=== PATIENT | male | born 1935 | race Caucasian/White ===

== ENCOUNTER 2021-11-11 09:05 | Emergency (ER) | payer OTHER ==
--- OUTSIDE RECORDS SUMMARY | 2021-11-11 09:09 | XMS REPORT | Continuity of Care Document ---
:1935 Author Organization [facility] t Address [address] [place] [address] Care Team Providers Name Role Phone MEGHANN PATE Primary Care Physician Unavailable RICHARD Attending Clinician Unavailable Harrison MCMAHON, Juan Johnson Attending Clinician Unavailable YANE CARBONE Attending Clinician Unavailable Yane Carbone MD Attending Clinician KVxavier Attending Clinician Unavailable MEGHANN PATE Attending Clinician Unavailable RICHARD Admitting Clinician Unavailable YANE CARBONE Admitting Clinician Unavailable Yane Carbone MD Admitting Clinician KVxavier Admitting Clinician Unavailable MEGHANN PATE Admitting Clinician Unavailable Payers Payer Name Policy Type Policy Number Effective Date Expiration Date S kalpesh [place]: [id number] 2004 [place] 00:00:00 [place] [id number] 2007 [place] (MEDICARE 00:00:00 SUPPLEMENT) [place]: [id number] 2004 [place] 00:00:00 - RHC - FQHC Problems Condition Condition Condition Status Onset Resolution Last Treating Co mments Source Name Details Category Date Date Treatment Clinician Date Trauma Trauma Disease Active Univers 6-17 ity of 00:00: [place] 00 Medical Branch 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 8-20 [place] of hyperplasi [place] Essential Essential Disease Active Uni vers hypertensi hypertensi 8-20 it y of on on 00:00: [place] [facility] 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 00:00: [place] disease disease 00 Medical Branch 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 00:00: [place] [facility] Onychomyco Onychomyco Problem Active M [place] sis of sis of 9-30 da toenails Toenails 00:00: Medica l 00 Group 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 00:00: Medical 00 Group Mouth Mouth Problem Active [place] breathing Breathing 9-30 da with nasal with Nasal 00:00: Me dical obstructio Obstructio 00 Gr oup n n Adult Adult Problem Active [facility] 9-[facility] da examinatio Examinatio 00:00: Me dical n n 00 Group Mass of Mass of Problem Active [place] subcutaneo Subcutaneo 9-30 da us tissue us Tissue 00:00: Medi narinder of back of Back 00 Group Microscopi Microscopi Problem Active M [place] c c 9-30 da hematuria Hematuria 00:00: Medi narinder 00 Group Viral Viral Problem Active [place] syndrome Syndrome da Medical Group Recurrent Recurrent Problem Active [place] acute Acute da sinusitis Sinusitis Medi narinder Group Upper Upper Problem Active [place] respirator Respirator da y y Medical infection Infection Grou p Allergic Allergic Problem Active [place]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 Rhinitis da Medical Group Allergies, Adverse Reactions, Alerts Allergy Allergy Status Severity Reaction(s) Onset Inactive Treating Comm ents Source Name Type Date Date Clinician NO KNOWN Drug Active Univers ALLERGIE Class ity of S [place] [facility] [place] Social History Social Habit Start Date Stop Date Quantity Comments Source Exposure to 2021-09-05 2021-09-15 Not sure [facility] SARS-CoV-2 (event) 00:00:00 03:38:00 Medica l Branch Sex Assigned At [birth year] [facility] 00:00:00 00:00:00 Medical Branch Smoking Status Start Date Stop Date Source Unknown if ever smoked [facility] Never Smoker [place] [facility] Medications Ordered Filled Start Stop Current Ordering Indication Dosage Frequency Signature Comments Components Source Medication Medication Date Date Medication? Clinician (SIG) Name Name polyethylen Yes [id number] 17g Take 1 Univers e glycol 6-22 Packet by ity of 3350 17 00:00: mouth [place] gram powder 00 daily. Medica l Branch tamsulosin Yes .4mg Take 1 Unive rs 0.4 mg 24 6-22 capsule by ity of hr capsule 00:00: mouth [place] 00 daily. Medical Branch aspirin 81 Yes 81mg Take 1 Unive rs mg chewable 6-22 tablet by ity of tablet 00:00: mouth [place] 00 daily. Medical Branch polyethylen Yes [id number] 17g Take 1 Univers e glycol 6-22 Packet by ity of 3350 17 00:00: mouth [place] gram powder 00 daily. Medica l Branch tamsulosin Yes .4mg Take 1 Unive rs 0.4 mg 24 6-22 capsule by ity of hr capsule 00:00: mouth [place] 00 daily. Medical Branch aspirin 81 Yes 81mg Take 1 Unive rs mg chewable 6-22 tablet by ity of tablet 00:00: mouth [place] 00 daily. Medical Branch aspirin Yes 81mg 81 mg, Univers chewable 6-21 Oral, ity of tablet 81 14:00: DAILY, [place] mg 00 First dose Medical on Sat Branch 09/19/21 at 0900, Until Discontinu ed, Routine tamsulosin 2022-0 Yes .4mg 0.4 mg, Univ ers (FLOMAX) 6-21 Oral, ity of capsule 0.4 14:00: DAILY, [place] mg 00 First dose Medical on Sat Branch 09/19/21 at 0900, Until Discontinu ed, Routine acetaminoph 2022-0 Yes [id number] 650mg Take 2 Univers en 325 mg 6-21 tablets by ity of tablet 00:00: mouth 00 every 6 Medical (six) Branch hours as needed for Pain (scale 4-6). bisacodyL 2022-0 Yes 10mg Insert 1 Univ ers 10 mg 6-21 Suppositor ity of suppository 00:00[place] 00 rectum at Medical bedtime as Branch needed for Constipati on. carvediloL 2022-0 Yes 3.125mg Take 1 Un ke[place] 3.125 mg 6-21 tablet by ity of tablet 00:00: mouth (two) Medical times Branch daily with meals. celecoxib 2022-0 Yes 100mg Take 1 Unive rs 100 mg 6-21 capsule by ity of capsule 00:00: mouth (two) Medical times Branch daily with meals. methocarbam 2022-0 Yes 500mg Take 1 Uni vers oL 500 mg 6-21 tablet by ity o f tablet 00:00: mouth 4 (four) Medical times Branch daily. acetaminoph 2022-0 Yes [id number] 650mg Take 2 Univers en 325 mg 6-21 tablets by ity of tablet 00:00: mouth 00 every 6 Medical (six) Branch hours as needed for Pain (scale 4-6). bisacodyL 2022-0 Yes 10mg Insert 1 Univ ers 10 mg 6-21 Suppositor ity of suppository 00:00: [place] 00 rectum at Medical bedtime as Branch needed for Constipati on. carvediloL 2022-0 Yes 3.125mg Take 1 Un keira 3.125 mg 6-21 tablet by ity of tablet 00:00: mouth 2 (two) Medical times Branch daily with meals. celecoxib 2022-0 Yes 100mg Take 1 Unive rs 100 mg - capsule by ity of capsule 00:00: mouth 2 [place] 00 (two) Medical times [place] daily with meals. methocarbam 2021-0 Yes 500mg Take 1 Uni vers oL 500 mg - tablet by ity o f tablet 00:00: mouth 4 [place] 00 (four) Medical times Branch daily. carvediloL 2021-0 Yes 3.125mg 3.125 mg, Univers (COREG) - Oral, BID ity of tablet 22:00: MEALS, [place] 3.125 mg 00 First dose Medic al on [facility] 09/18/21 at 1700, Until Discontinu ed, Routine bisacodyL 2021-0 Yes 10mg 10 mg, Univer s (DULCOLAX) 09-18 Rectal, ity of suppository 14:23: QHSPRN, [place] as 10 mg 43 Starting Medical on [facility] 09/18/21 at 0923, Until Discontinu ed, Routine, Constipati on magnesium 2021- No 4g 4 g, IV Univ ers sulfate in 09-18 Piggyback, it y of water 4 04:00: 06:04 ONCE, 1 [place] gram/50 mL 00 :00 dose, On Medic al (8 %) IV [facility] Piggyback 4 09/17/21 at g 2300, Routine polyethylen 2021-0 Yes 17g 17 g, Unive rs e glycol 09-17 Oral, ity of 3350 powder 14:00: DAILY, [place] 17 g 00 First dose Medical on [facility] 09/17/21 at 0900, Until Discontinu ed, Routine enoxaparin 0 Yes 40mg 40 mg, Unive rs (LOVENOX) 09-17 Subcutaneo ity of injection 05:00: us, Q24H, [place] as 40 mg 00 First dose Medical on [facility] 09/17/21 at 0000, Until Discontinu ed, Routine methocarbam 2021-0 Yes 500mg 500 mg, Un keira oL - Oral, QID, ity of (ROBAXIN) 01:00: [place] tablet 500 00 on Sat Medical mg 09/16/21 at Branch 2000, Until Discontinu ed, Routine acetaminoph 2022-0 Yes 650mg 650 mg, Un ke[place] en -18 Oral, Q6H, ity of (TYLENOL) 23:00: [place] tablet 650 00 on Sat Medical mg 09/16/21 at Branch 1800, Until Discontinu ed, Routine celecoxib Yes 100mg 100 mg, Univ ers (CELEBREX) 18 Oral, BID ity of capsule 100 22:00: MEALS, [place] mg 00 First dose Medical on Sat Branch 09/16/21 at 1700, Until Discontinu ed, Routine HYDROcodone Yes 1{tbl} 1 tablet, Univers -acetaminop 09-16 Oral, ity of hen (NORCO 20:59: Q6HPRN, [place] 5) 5-325 mg 58 Starting Medi narinder tablet 1 on Sat Branch tablet 09/16/21 at 1559, Until Discontinu ed, Routine, Pain (scale 7-10) acetaminoph 2021- No 1000mg 1,000 mg, Univers en ADULT 09-16-18 IV ity of (OFIRMEV) 11:00: 21:00 [place]fusion, [place] injection 00 :45 at 400 Medical 1,000 mg mL/hr Branch Administer over 15 Minutes, Q8H, 3 doses, First dose (after last reorder) on 09/16/21 at 0600, Last dose on 09/16/21 at 2200, Routine
Indicatio n: Non-periop erative Patient
Approved by: Per Policy (NPO Status) lactated 2021- No 1000mL at 42 Unive rs ringers IV 09-15- mL/hr, ity of infusion 14:00: 14:41 1,000 mL, [place] as 1,000 mL 00 :07 IV Medical Infusion, Branch CONTINUOUS , Starting on Sat09/15/21 at 0900, Until Sat09/17/21 at 0941, Routine lactated 2021- No 1000mL at 75 Unive rs ringers IV 09-15- mL/hr, ity of infusion 11:30: 13:49 1,000 mL, [place] as 1,000 mL 00 :26 IV Medical Infusion, Branch CONTINUOUS , Starting on Sat09/15/21 at 0630, Until Sat09/15/21 at 0849, Routine methocarbam No 1000mg 1,000 mg, Univers oL 09-15 Intravenou ity of (ROBAXIN) 11:00: 21:00 s, Q8H, [place] injection 00 :45 First dose Medi narinder 1,000 mg on Fri Branch 09/15/21 at 0600, Until Discontinu ed, Routine acetaminoph 2021- No 1000mg 1,000 mg, Univers en ADULT 09-15 IV ity of (OFIRMEV) 11:00: 04:13 [place]fusion, [place] injection 00 :00 at 400 Medical 1,000 mg mL/hr Branch Administer over 15 Minutes, Q8H, 3 doses, First dose on Sat09/15/21 at 0600, Last dose on Sat09/15/21 at 2200, Routine
Indicatio n: Non-periop erative Patient&lt ;br>Approv ed by: Per Policy (NPO Status) morpHINE 30 No Unive rs mg/30 mL 09-15 ity of (fixed 10:15: 21:00 [place] dose) [employer] [place] 19 :45 Medical injection Branch ondansetron Yes 4mg 4 mg, Slow Univers (ZOFRAN 09-15 IV Push, ity of (PF)) 09:19: Q6HPRN, [place] injection 4 24 Starting Medi narinder mg on Sat Branch 09/15/21 at 0419, Until Discontinu ed, THANIA, Nausea and Vomiting (N/V) pantoprazol No 40mg 40 mg, Uni vers e 09-15 Slow IV ity of (PROTONIX) 09:15: 09:20 Push, [place] injection 00 :00 Q24H, 3 Medical 40 mg doses, Branch First dose on Sat09/15/21 at 0415, Last dose on Sat09/17/21 at 0415 aspirin aspirin No aspirin [facility] rosuvastati rosuvastati No rosuvastat [place] 10 mg n 10 mg in 10 mg da tablet tablet tablet Medical Group Vital Signs Vital Name Observation Time Observation Value Comments Source Systolic blood 2021-09-19 16:21:00 106 mm[Hg] Univer [facility]ity of [facility] Diastolic blood 2021-09-19 16:21:00 63 mm[Hg] Unive rsity of [facility] Heart rate 2021-09-19 16:21:00 72 /min [facility] Body temperature 2021-09-19 16:21:00 [facility].67 [facility] rate 2021-09-19 16:21:00 18 /min [facility] Oxygen saturation in 2021-09-19 16:21:00 99 /min [facility] Arterial blood by [facility] Pulse oximetry [place] Body height 2021-09-15 08:37:07 175.3 cm [facility] Body weight 2021-09-15 08:37:07 54.885 kg [facility] BMI 2021-09-15 08:37:07 17.87 kg/m2 [facility] BP Diastolic 2019-01-08 00:00:00 70 mm[Hg] [facility] Height 2019-01-08 00:00:00 63 [in_i] [facility] BMI (Body Mass 2019-01-08 00:00:00 23.3 kg/m2 [facility] range rider Medical Index) Group BP Systolic 2019-01-08 00:00:00 116 mm[Hg] [facility] Body Weight 2019-01-08 00:00:00 131.8 [lb_av] [facility] BP Diastolic 2018-12-29 00:00:00 79 mm[Hg] [facility] Height 2018-12-29 00:00:00 63 [in_i] [facility] BMI (Body Mass 2018-12-29 00:00:00 23.4 kg/m2 [facility] range rider Medical Index) Group BP Systolic 2018-12-29 00:00:00 130 mm[Hg] [facility] Body Weight 2018-12-29 00:00:00 2112 [oz_av] [facility] Procedures Procedure Date / Time Performing Clinician Source Performed MAGNESIUM 2021-09-18 10:57:00 Isaiah Armendariz [facility] PHOSPHORUS 2021-09-17 09:26:00 Clay [facility] MAGNESIUM 2021-09-17 09:26:00 Clay [facility] BASIC METABOLIC PANEL 2021-09-17 09:26:[facility] ([facility], K, CL, CO2, GLUCOSE, Medica l Branch BUN, CREATININE, CA) CBC WITH DIFF 2021-09-17 09:26:00 Clay [facility] MR THORACIC SPINE WO 2021-09-15 19:10:06 Rich Kay [facility] CONTRAST Medical Branch MR CERVICAL SPINE WO 2021-09-15 18:42:32 Kevin [facility] CONTRAST Medical Branch CT THORAX W CONTRAST 2021-09-15 11:54:22 [facility] CT THORACIC SPINE WO 2021-09-15 11:45:11 Pillo Santacruz [facility] CONTRAST Medical Branch CT LUMBAR SPINE WO 2021-09-15 11:42:05 Pillo Santacruz [facility] CONTRAST Medical Branch XR HAND 3+ VW LEFT 2021-09-15 11:34:58 Kevin [facility] Medical [place] XR HAND 3+ VW BILATERAL 2021-09-15 10:23:49 [facility] XR CHEST 1 VW 2021-09-15 09:48:28 Kevin [facility] CT CERVICAL SPINE WO 2021-09-15 09:41:37 Kevin [facility] CONTRAST Medical Branch CT HEAD WO CONTRAST 2021-09-15 09:41:37 [facility] COVID-19 (ID NOW RAPID 2021-09-15 09:32:00 Osvaldo [facility] TESTING) Medical Branch LAB ONLY COVID 2021-09-15 09:32:00 Kevin [facility] INTERPRETATION [facility] BASIC METABOLIC PANEL 2021-09-15 08:59:[address] [facility] (NA, K, CL, CO2, GLUCOSE, Medica l Branch BUN, CREATININE, CA) CBC WITH DIFF 2021-09-15 08:59:00 Pillo Santacruz [facility] PROTHROMBIN TIME / INR 2021-09-15 08:59:00 Pillo Santacruz Uni versity [facility] ACTIVATED PARTIAL 2021-09-15 08:59:00 Pillo Santacruz [facility] HB ABO GROUPING 2021-09-15 08:39:00 Pillo Santacruz [facility] TYMPANOMETRY 2019-01-08 00:00:[address], face, w/o contrast 2019-01-08 00:00:[address], kidney, w/ contrast 2019-01-02 00:00:00 Arndt [facility] XR, lumbosacral spine, 2 2018-12-29 00:00:00 [place] [facility] 3 view Group Cardiac Surgery [place] [facility] Plan of Care Planned Activity Planned Date Details Comments Source Instructions [place] [facility] Encounters Start End Encounter Admission Attending Care Care Encounter Source Date/Time Date/Time Type Type Clinicians Facility Department ID 2021-10-17 2021-10-17 Outpatient AMBREEN_AMANDA RODRIGUEZ [id number] [place] 05:03:00 05:03:00 NIDIA 0719 da [facility] Outre h Program 2021-09-20 2021-09-20 Transition JARAD Terry [id number] Univers 00:00:00 00:00:00 of Care Juan NUÑEZ [id number] ity [facility] [id number] [place] [id number] [place] [address] Branch 2021-09-15 2021-09-19 Inpatient Richard CARBONE MESALMA STR [id number] Univers 03:36:00 18:21:00 YANE pitt [facility] 2021-09-15 2021-09-19 [facility] DANY Carbone [id number] Univers 03:36:00 18:21:00 Encounter Yane FRAZIER [id number] [facility] [id number] James as [id number] [facility] 097 Branch 2020-02-17 2020-02-17 Outpatient KVern MMG MMG [id number] [place] 02:30:00 02:30:00 1118 Medical Group 2019-12-17 2019-12-17 Outpatient KVern MMG MMG [id number] [place] 01:28:00 01:28:00 1009 Medical Group 2019-11-11 2019-11-11 [place] [id number] [place] 11:42:00 11:42:00 0828 Medical Group 2019-01-08 2019-01-08 Palivela MM [place] - [id number] [place] 00:00:00 00:00:00 MD Claire: [address], [place] - [address], [place] [place] [address] , Ph. 2018-12-29 2018-12-29 Gregory Weir [facility] [place] - [id number] M atagor 00:00:00 00:00:00 MD Armond: [address] - [address], [place] [address] , Ph. 2017-05-13 2017-05-13 [id number] 19:32:00 19:32:00 [facility] Results Test Description Test Time Test Comments Results Result Comments Source BASIC METABOLIC PANEL (NA, K, CL, CO2, GLUCOSE, BUN, 2021-08 10:41:34 CREATININE, CA) Test Item Value Reference Range Interpretation Comme nts NA (test code = 8124441401) 134 mmol/L 135-145 L K (test code = 6663716475) 4.7 mmol/L 3.5-5.0 S light hemolysis CL (test code = 2929838109) 104 mmol/L 98-108 CO2 TOTAL (test code = 27 mmol/L 23-31 5221474656) AGAP (test code = 2-16 9525706491) BUN (test code = 29 mg/dL 7-23 H Slight hemo lysis 8743435550) GLUCOSE (test code = 95 mg/dL 70-110 1120348186) CREATININE (test code = 0.98 mg/dL 0.60-1.25 9767897575) CALCIUM (test code = 8.6 mg/dL 8.6-10.6 4484760466) eGFR (test code = mL/min/1.73m2 5355229453) YANG (test code = YANG) Association of Glomerular Filtration Rate (GFR) and Staging of Kidney Disease* + + +--- +| GFR (mL/min/1.73 m2) ?| With Kidney Damage ?| ?Without Kidney Damage+ -----+ --+ ---+| ?>90 ?| ?Stage one ?| ? Normal ?+ + +-- +| ?60-89 ?| ?Stage two ?| ? Decreased GFR ? + + +--- +| ?30-59 ?| ?Stage three ?| ? Stage three ? + + +--- +| ?15-29 ?| ?Stage four ? | ? Stage four ?+ + +-- +| ?<15 (or dialysis) ? ?| ?Stage five ? | ? Stage five ?+ + +-- + *Each stage assumes the associated GFR level has been in effect for at least three months. ?Stages 1 to 5, with or without kidney disease, indicate chronic kidney disease. Notes: Determination of stages one and two (with eGFR >59mL/min/1.73 m2) requires estimation of kidney damage for at least three months as defined by structural or functional abnormalities of the kidney, manifested by either:Pathological abnormalities or Markers of kidney damage (including abnormalities in the composition of the blood or urine or abnormalities in imaging tests). Lab Interpretation (test Abnormal code = 70427-3) [facility] 10:41:34 Test Item Value Reference Range Interpretation Comments MAGNESIUM (test code = 1.5 mg/dL 1.7-2.4 L [facility] [id number]) Lab Interpretation (test Abnormal code = 04830-5) [facility] 10:41:34 Test Item Value Reference Range Interpretation Comments PHOSPHORUS (test code = 7621465034) 3.1 mg/dL 2.5-5.0 Lab Interpretation (test code = Normal 37322-8) [facility] WITH [id number] 10:13:09 Test Item Value Reference Range Interpretation Comments WBC (test code = See_Comment [Automated 6690-2) message] The sy stem which generated this result transmitted reference range : 4.20 - 10.70 10*3/?L. The reference range was not used to interpret this result as normal/abnormal . RBC (test code = See_Comment L [Automated 789-8) message] The sy stem which generated this result transmitted reference range : 4.26 - 5.52 10*6/?L. The reference range was not used to interpret this result as normal/abnormal . HGB (test code = 11.1 g/dL 12.2-16.4 L 718-7) HCT (test code = 34.8 % 38.4-49.3 L 4544-3) MCV (test code = 91.8 fL 81.7-95.6 787-2) MCH (test code = 29.3 pg 26.1-32.7 785-6) MCHC (test code = 31.9 g/dL 31.2-35.0 786-4) RDW-SD (test code = 48.2 fL 38.5-51.6 60755-5) RDW-CV (test code = 14.4 % 12.1-15.4 788-0) PLT (test code = See_Comment L [Automated 777-3) message] The sy stem which generated this result transmitted reference range : 150 - 328 10*3/ ?L. The reference r rebel was not used to interpret this result as normal/abnormal . MPV (test code = 11.3 fL 9.8-13.0 65549-4) IPF % (test code = 5.3 % 1.2-10.7 Platelet count 1683053057) measured by fluorescence method. NRBC/100 WBC (test See_Comment [Automat ed code = 6242943854) message] The system which generated this result transmitted reference range : 0.0 - 10.0 /100 WBCs. The refer ence range was not u sed to interpret th is result as normal/abnormal . NRBC x10^3 (test code <0.01 See_Comment [Auto mated = 9668140737) message] The s ystem which generated this result transmitted reference range : 10*3/?L. The reference range was not used to interpret this result as normal/abnormal . GRAN MAT (NEUT) % 72.1 % (test code = 770-8) IMM GRAN % (test code 0.40 % = 9610179510) LYMPH % (test code = 15.5 % 736-9) MONO % (test code = 9.1 % 5905-5) EOS % (test code = 2.5 % 713-8) BASO % (test code = 0.4 % 706-2) GRAN MAT x10^3(ANC) 3.81 10*3/uL 1.99-6.95 (test code = 7617478515) IMM GRAN x10^3 (test <0.03 0.00-0.06 code = 2414114807) LYMPH x10^3 (test code 0.82 10*3/uL 1.09-3.23 L = 731-0) MONO x10^3 (test code 0.48 10*3/uL 0.36-1.02 = 742-7) EOS x10^3 (test code = 0.13 10*3/uL 0.06-0.53 711-2) BASO x10^3 (test code <0.03 0.01-0.09 = 704-7) Lab Interpretation Abnormal (test code = 32768-9) [facility] and Screen - ONCE [id number] 09:54:26 Test Item Value Reference Range Interpretation Comments ABO & RH (test code B POSITIVE Performe d at [facility] = 20) Laboratory [facility] Blood [facility]3 01 [facility] s [id number] Free: [phone] A No. [id number] IAT (test code = Negative Performed a t [facility] 1185) Laboratory [facility] Blood [facility]3 [facility] s [id number] Free: [phone] A No. [id number] [facility] WITH [id number] 09:42:51 Test Item Value Reference Range Interpretation Comments WBC (test code = See_Comment [Automated 6690-2) message] The sy stem which generated this result transmitted reference range : 4.20 - 10.70 10*3/?L. The reference range was not used to interpret this result as normal/abnormal . RBC (test code = See_Comment L [Automated 789-8) message] The sy stem which generated this result transmitted reference range : 4.26 - 5.52 10*6/?L. The reference range was not used to interpret this result as normal/abnormal . HGB (test code = 11.3 g/dL 12.2-16.4 L 718-7) HCT (test code = 35.6 % 38.4-49.3 L 4544-3) MCV (test code = 92.2 fL 81.7-95.6 787-2) MCH (test code = 29.3 pg 26.1-32.7 785-6) MCHC (test code = 31.7 g/dL 31.2-35.0 786-4) RDW-SD (test code = 48.5 fL 38.5-51.6 44706-0) RDW-CV (test code = 14.4 % 12.1-15.4 788-0) PLT (test code = See_Comment L [Automated 777-3) message] The sy stem which generated this result transmitted reference range : 150 - 328 10*3/ ?L. The reference r rebel was not used to interpret this result as normal/abnormal . MPV (test code = 11.1 fL 9.8-13.0 10561-3) IPF % (test code = 5.2 % 1.2-10.7 Platelet count 7419869569) measured by fluorescence method. NRBC/100 WBC (test See_Comment [Automat ed code = 8302819993) message] The system which generated this result transmitted reference range : 0.0 - 10.0 /100 WBCs. The refer ence range was not u sed to interpret th is result as normal/abnormal . NRBC x10^3 (test code <0.01 See_Comment [Auto mated = 8956331870) message] The s ystem which generated this result transmitted reference range : 10*3/?L. The reference range was not used to interpret this result as normal/abnormal . GRAN MAT (NEUT) % 73.9 % (test code = 770-8) IMM GRAN % (test code 0.60 % = 6266077327) LYMPH % (test code = 14.2 % 736-9) MONO % (test code = 10.7 % 5905-5) EOS % (test code = 0.3 % 713-8) BASO % (test code = 0.3 % 706-2) GRAN MAT x10^3(ANC) 5.10 10*3/uL 1.99-6.95 (test code = 5675651311) IMM GRAN x10^3 (test 0.04 10*3/uL 0.00-0.06 code = 9042304278) LYMPH x10^3 (test code 0.98 10*3/uL 1.09-3.23 L = 731-0) MONO x10^3 (test code 0.74 10*3/uL 0.36-1.02 = 742-7) EOS x10^3 (test code = <0.03 0.06-0.53 L 711-2) BASO x10^3 (test code <0.03 0.01-0.09 = 704-7) Lab Interpretation Abnormal (test code = 33279-7) [facility] METABOLIC PANEL (NA, K, CL, CO2, GLUCOSE, BUN, CREATININE, [place])2021-09-15 09:36:28 Test Item Value Reference Range Interpretation Comments NA (test code = 140 mmol/L 135-145 6604704631) K (test code = 4.2 mmol/L 3.5-5.0 4821014787) CL (test code = 105 mmol/L 98-108 1883042189) CO2 TOTAL (test code = 31 mmol/L 23-31 5850207681) AGAP (test code = 2-16 1464023463) BUN (test code = 31 mg/dL 7-23 H [id number]) GLUCOSE (test code = 105 mg/dL 70-110 5675396106) CREATININE (test code = 1.14 mg/dL 0.60-1.25 5538251288) CALCIUM (test code = 9.1 mg/dL 8.6-10.6 0427348786) eGFR (test code = mL/min/1.73m2 9215153976) YANG (test code = YANG) Association of Glomerular Filtration Rate (GFR) and Staging of Kidney Disease* + --+ --+ ------+| GFR (mL/min/1.73 m2) ?| With Kidney Damage ?| ?Without Kidney Damage+ --------+ --------+ +| ?>90 ?| ?Stage one ?| ? Normal ?+ ---+ ---+ -------+| ?60-89 ?| ?Stage two ?| ? Decreased GFR ? + --+ --+ ------+| ?30-59 ?| ?Stage three ?| ? Stage three ? + --+ --+ ------+| ?15-29 ?| ?Stage four ? | ? Stage four ?+ ---+ ---+ -------+| ?<15 (or dialysis) ? ?| ?Stage five ? | ? Stage five ?+ ---+ ---+ -------+ *Each stage assumes the associated GFR level has been in effect for at least three months. ?Stages 1 to 5, with or without kidney disease, indicate chronic kidney disease. Notes: Determination of stages one and two (with eGFR >59mL/min/1.73 m2) requires estimation of kidney damage for at least three months as defined by structural or functional abnormalities of the kidney, manifested by either:Pathological abnormalities or Markers of kidney damage (including abnormalities in the composition of the blood or urine or abnormalities in imaging tests). Lab Interpretation Abnormal (test code = 86739-3) [facility] / [id number] 09:16:30 Test Item Value Reference Range Interpretation Comments PROTIME PATIENT (test See_Comment [Auto mated message] code = 5964-2) The system [employer] generated this result transmitted ref erence range: 10.1 - 1 2.6 Seconds. The re ference range was not u sed to interpret this result as normal/abnor mal. INR (test code = 6301-6) Nor mal INR <1.1; Warfarin Therap eutic range 2.0 to 3. 0 or 2.5 to 3.5, dep ending upon the indica tions. Lab Interpretation (test Normal code = 48909-7) [facility] THRMPLAS [id number] 09:16:30 Test Item Value Reference Range Interpretation Comments APTT Patient (test code = See_Comment [ Automated message] 3173-2) The system [employer] generated this result transmitted ref erence range: 26 - 36 Seconds. The re ference range was not u sed to interpret this result as normal/abnor mal. Lab Interpretation (test Normal code = 63763-0) [facility] IrvingS[facility] Rate ESR ([place])2017-05-13 21:59:00 Test Item Value Reference Range Interpretation Comments ESR (test code = HESR) 22 mm/Hr 0-9 H Thyroid Stimulating Hormone (TSH)2017-05-13 21:51:00 Test Item Value Reference Range Interpretation Comments TSH (test code = TSH) 1.73 mIU/mL 0.270-4.200 N [id number] 21:10:00 Test Item Value Reference Range Interpretation Comments NT ProBnp (test code = PBNP) 584 pg/mL 0-449 H"
[2021-11-11] MEDS ORDERED: dexAMETHasone 10 MG/ML VIAL ONE (09:42)
[2021-11-11] MEDS ORDERED: MORPHINE 2 MG/ML SYR ONE (09:42)
[2021-11-11] MEDS ORDERED: DIAZEPAM 2 MG TABLET ONE (09:42)
[2021-11-11] MEDS ORDERED: KETOROLAC 30 MG/ML INJ ONE (09:42)
[2021-11-11] MEDS ORDERED: ONDANSETRON 4 MG/2 ML VIAL ONE (09:43)
[2021-11-11 10:08] LABS: Absolute Lymphocytes (CBC) 1.1 K/uL (0.7-4.9); Hematocrit 37.4 % (39.6-49.0); Lymphocytes % 18.7 % (15.3-44.8); MCV 91.5 fL (80-100); RBC Red Blood Cell Count 4.09 M/uL (4.33-5.43)
[2021-11-11 10:18] LABS: Albumin 3.3 g/dL (3.4-5.0); Bilirubin Total 0.3 mg/dL (0.2-1.0); Potassium 4.4 mmol/L (3.5-5.1); Protein, Total 7.3 g/dL (6.4-8.2); Troponin High Sensitivity 7.6 pg/mL (<58.9)
--- NOTE | 2021-11-11 10:41 | RAD REPORT ---
EXAM DESCRIPTION: CT - C Spine Wo Con - 11/11/2021 10:16 am CLINICAL HISTORY: Left arm radiculopathy COMPARISON: None. TECHNIQUE: Computed axial tomography of the cervical spine were obtained with sagittal and coronal r econstruction images generated and reviewed. All CT scans are performed using dose optimization technique as appropriate and may include automated exposure control or mA/KV adjustment according to patient size. FINDINGS: A cervical fracture is not seen. Slight anterior subluxation C2 on C3. Disc space narrowing C4-5. Disc bulge and osteophytes. Moderate to marked narrowing of the left and m oderate narrowing right neural foramina Mild posterior subluxation C5 on C6. Disc space narrowing. Osteophytes and disc bulge. Moderate narro wing of the neural foramina bilaterally Disc space narrowing C6-7. Osteophytes disc bulge. Kxxv-mz-noqvgvwn narrowing left neural foramina Slight anterior subluxation C7 on T1 Mild compression T1 vertebral body probably chronic. Scoliosis IMPRESSION: A cervical fracture is not seen. 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
--- NOTE | 2021-11-11 10:48 | EDPHYS ---
Physician Documentation [facility] Name: Raji Dorman Age: 85 yrs Sex: Male : 1935 Arrival Date: 11/11/2021 Time: 09:09 Bed 20 Private MD: MIRELLA Physician Andres Hackett HPI: 11/11 10:31 This 85 yrs old Male presents to ER via Wheelchair with complaints of priscila Numbness Of Arm. 10:31 The patient or guardian complains of pain, that is acute. The complaints affect the priscila anterior aspect of left shoulder, left bicep, posterior aspect of left shoulder and left tricep. Context: The problem was sustained at home. Onset: The symptoms/episode began/occurred 3 day(s) ago. Treatment prior to arrival includes: no previous treatment. Modifying factors: The symptoms are alleviated by remaining still, the symptoms are aggravated by nothing. Associated signs and symptoms: The patient has no apparent associated signs or symptoms. Severity of symptoms: At their worst the symptoms were mild, in the emergency department the symptoms are unchanged. The patient has experienced similar episodes in the past, several times. Historical: - Allergies: 09:16 No Known Allergies; ld1 - PMHx: 09:16 Hypertensive disorder; Hypercholesterolemia; ld1 - PSHx: 09:16 Bypass surgery; ld1 - Immunization history:: Adult Immunizations up to date, Client reports receiving the 2nd dose of the Covid vaccine. - Social history:: Smoking status: Patient denies any tobacco usage or history of. Patient/guardian denies using alcohol. - Family history:: not pertinent. ROS: 10:31 Constitutional: Negative for fever, chills, and weight loss, Eyes: Negative for injury, priscila pain, redness, and discharge, ENT: Negative for injury, pain, and discharge, Cardiovascular: Negative for chest pain, palpitations, and edema, Respiratory: Negative for shortness of breath, cough, wheezing, and pleuritic chest pain, Abdomen/GI: Negative for abdominal pain, nausea, vomiting, diarrhea, and constipation, Back: Negative for injury and pain, : Negative for injury, bleeding, discharge, and swelling, MS/Extremity: Negative for injury and deformity, Skin: Negative for injury, rash, and discoloration, Neuro: Negative for headache, weakness, numbness, tingling, and seizure. 10:31 Neck: Positive for pain with movement, pain at rest. Exam: 10:31 Constitutional: This is a well developed, well nourished patient who is awake, alert, priscila and in no acute distress. Head/Face: Normocephalic, atraumatic. Eyes: Pupils equal round and reactive to light, extra-ocular motions intact. Lids and lashes normal. Conjunctiva and sclera are non-icteric and not injected. Cornea within normal limits. Periorbital areas with no swelling, redness, or edema. ENT: Nares patent. No nasal discharge, no septal abnormalities noted. Tympanic membranes are normal and external auditory canals are clear. Oropharynx with no redness, swelling, or masses, exudates, or evidence of obstruction, uvula midline. Mucous membranes moist. Chest/axilla: Normal chest wall appearance and motion. Nontender with no deformity. No lesions are appreciated. Cardiovascular: Regular rate and rhythm with a normal S1 and S2. No gallops, murmurs, or rubs. Normal PMI, no JVD. No pulse deficits. Respiratory: Lungs have equal breath sounds bilaterally, clear to auscultation and percussion. No rales, rhonchi or wheezes noted. No increased work of breathing, no retractions or nasal flaring. Abdomen/GI: Soft, non-tender, with normal bowel sounds. No distension or tympany. No guarding or rebound. No evidence of tenderness throughout. Back: No spinal tenderness. No costovertebral tenderness. Full range of motion. Male : Normal genitalia with no discharge or lesions. Skin: Warm, dry with normal turgor. Normal color with no rashes, no lesions, and no evidence of cellulitis. MS/ Extremity: Pulses equal, no cyanosis. Neurovascular intact. Full, normal range of motion. Neuro: Awake and alert, GCS 15, oriented to person, place, time, and situation. Cranial nerves II-XII grossly intact. Motor strength 5/5 in all extremities. Sensory grossly intact. Cerebellar exam normal. Normal gait. Psych: Awake, alert, with orientation to person, place and time. Behavior, mood, and affect are within normal limits. 10:31 Neck: External neck: is normal, no acute changes, C-spine: no acute changes, Thyroid: appears normal, Trachea: is midline with no obvious abnormalities, ROM/movement: limited range of motion, that is mild, when rotating to the right, when rotating to the left, with flexion, with extension, Lymph nodes: no appreciated lymphadenopathy. 10:31 ECG was reviewed by the Attending Physician. Vital Signs: 09:15 BP 141 / 86; Pulse 68; Resp 16; Temp 97.7(TE); Pulse Ox 100% on R/A; Weight 54.43 kg; ld1 Height 5 ft. 8 in. (172.72 cm); Pain 3/10; 09:15 Body Mass Index 18.25 (54.43 kg, 172.72 cm) ld1 MDM: 09:22 Patient medically screened. [facility] 10:36 Differential diagnosis: contusion, tendonitis. Data reviewed: vital signs, nurses [facility] notes, lab test result(s), EKG, radiologic studies, CT scan. Data interpreted: front desk monitor: rate is 68 beats/min, rhythm is regular, Pulse oximetry: on room air is 100 %. Test interpretation: by ED physician or midlevel provider: ECG. Counseling: I had a detailed discussion with the patient and/or guardian regarding: the historical points, exam findings, and any diagnostic results supporting the discharge/admit diagnosis, lab results, radiology results, the need for outpatient follow up, for definitive care, a family practitioner, a neurologist. 11/11 09:28 Order name: CBC with Diff; Complete Time: 10: [facility] 11/11 09:28 Order name: Comprehensive Metabolic Panel; Complete Time: 10: [facility] 11/11 08:28 Order name: Troponin High Sensitivity; Complete Time: : [facility] 11/11 08:28 Order name: CT C Spine; Complete Time: 10:53 [facility] 11/11 08:28 Order name: EKG; Complete Time: 09:30 [facility] 11/11 08:28 Order name: EKG - Nurse/Tech; Complete Time: 10:00 [facility] EC:31 Rate is 64 beats/min. Rhythm is irregular. QRS [place] is Normal. [place] interval is normal. priscila QRS interval is normal. No Q waves. T waves are Normal. No ST changes noted. Clinical impression: NSR w/ Non-specific ST/T Changes and No evidence of ischemia. Interpreted by me. Reviewed by me. Administered Medications: 09:45 Drug: Ketorolac 15 mg Route: IVP; Site: right forearm; bp 10:22 Follow up: Response: No adverse reaction bp 09:45 Drug: Decadron - Dexamethasone 10 mg Route: IVP; Site: right forearm; bp 10:22 Follow up: Response: No adverse reaction bp 09:45 Drug: morphine 2 mg Route: IVP; Infused Over: 4 mins; Site: right forearm; bp 10:22 Follow up: Response: No adverse reaction; Pain is decreased bp 09:45 Drug: Zofran (Ondansetron) 4 mg Route: IVP; Site: right forearm; bp 10:22 Follow up: Response: No adverse reaction bp 09:45 Drug: Valium (diazepam) 2 mg Route: PO; bp 10:22 Follow up: Response: No adverse reaction bp Disposition Summary: 11/11/21 10:48 Discharge Ordered Location: Home priscila Problem: new priscila Symptoms: have improved priscila Condition: Stable priscila Diagnosis - Cervical disc disorder with radiculopathy, cervicothoracic region priscila - Cervical disc disorder with radiculopathy priscila - Spondylolysis, cervical region priscila Followup: priscila - With: Private Physician - When: 2 - 3 days - Reason: Recheck today's complaints, Continuance of care, Re-evaluation by your physician Followup: priscila - With: - When: 2 - 3 days - Reason: Recheck today's complaints, Re-evaluation by your physician Discharge Instructions: - Discharge Summary Sheet priscila - Cervical Radiculopathy priscila - Herniated Disk priscila - Herniated Disk, [id number] priscila - Cervical Radiculopathy, [id number] priscila Forms: - Medication Reconciliation Form priscila - Thank You Letter priscila - Antibiotic Education priscila - Prescription Opioid Use priscila Prescriptions: - dexamethasone 2 mg Oral tablet - take 1 tablet by ORAL route 2 times per day; 6 tablet; Refills: 0, Product priscila Selection Permitted - diclofenac potassium 50 mg Oral tablet - take 1 tablet by ORAL route 2 times per day; 20 tablet; Refills: 0, Product priscila Selection Permitted - Cyclobenzaprine 5 mg Oral Tablet - take 1 tablet by ORAL route 3 times per day As needed; 15 tablet; Refills: 0, priscila Product Selection Permitted - Tylenol-Codeine #3 300 mg-30 mg Oral - take 2 tablet by ORAL route every 6 hours; 20 tablet; Refills: 0, Product priscila Selection Permitted Signatures: Dispatcher [employer] Andres Araiza MD MD cha Peltier, Brian, RN RN bp Yuliya Lewis RN RN ld1 Corrections: (The following items were deleted from the chart) :17 09:16 PMHx: Hyperthyroidism; ld1 ld1
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
[2021-11-11 12:00] VITALS: BP 141/86; TEMP 97.7; O2SAT 100
--- NOTE | 2021-11-14 08:23 | EKG ---
Test Date: 2021-11-11 Test Time: 09:45:02 Section Leader Screen Printing: MB MEASUREMENT RESULTS: Intervals: Rate: 64 AR: 186 QRSD: 104 QT: 432 QTc: 445 [place]: P: 76 AR: 186 QRS: -65 T: 66 INTERPRETIVE STATEMENTS: Sinus rhythm with premature atrial complexes in a pattern of bigeminy Left axis deviation Incomplete right bundle branch block Anterior infarct, age undetermined Abnormal ECG No previous ECG available for comparison Electronically Signed On 11-14-21 08:12:38 CDT by Skyler Amaya
--- NOTE | 2021-11-14 08:23 | EKG ---
Test Date: 2021-11-11 Test Time: 09:47:04 [employer] Worker: MB MEASUREMENT RESULTS: Intervals: Rate: 58 [place]: 158 QRSD: 116 QT: 444 QTc: 435 [place]: P: 60 [place]: 158 QRS: -52 T: 71 INTERPRETIVE STATEMENTS: Sinus bradycardia with premature supraventricular complexes Left axis deviation Incomplete right bundle branch block T wave abnormality, consider anterior ischemia Abnormal ECG Compared to ECG 11/11/2021 09:45:02 T-wave abnormality now present Possible ischemia now present Sinus rhythm no longer present Myocardial infarct finding no longer present Electronically Signed On 11-14-21 08:12:37 CDT by Skyler Amaya
== END 2021-11-11 11:20 | disposition home or self-care (01) ==
LOC: ER 09:05
DX: M50.13 Cervical disc disorder with radiculopathy, cervicothoracic region (principal); M43.02 Spondylolysis, cervical region; I10 Essential (primary) hypertension; Z95.1 Presence of aortocoronary bypass graft
CPT/HCPCS: 93005 ×2; 85025; 36415; 84484; 80053; 72125; 96375; 96374; 99284; J1100; J2270; J2405